=== PATIENT | male | born 1985 ===

== ENCOUNTER 2019-11-26 11:09 | Day surgery (SDC) | payer OTHER ==
[~2019-11-26 11:09] MED LIST: Buffered Lidocaine 1% SYRIN* 1 ML/SYRINGE INTRADERM ONE; Famotidine IV* 10 MG/ML 2 ML (20 mg) IV ONE; Lactated Ringers 1000 ML Bag* 1,000 ML IV SCH
[2019-11-26] MEDS ORDERED: Midazolam* 1 MG/ML 5 ML VIAL (5 MG) ONE ×2 (11:20→16:29)
[2019-11-26] MEDS ORDERED: Clindamycin 900 MG/D5W BAG(*) 900 MG/50 ML BAG IVPB ONE (11:28)
[2019-11-26] MEDS ORDERED: Buffered Lidocaine 1% SYRIN* 1 ML/SYRINGE INTRADERM ONE (11:28)
[2019-11-26] MEDS ORDERED: Famotidine IV* 10 MG/ML 2 ML (20 mg) ONE (11:29)
[2019-11-26] MEDS ORDERED: Bupivacaine 0.25% SDV* 30 ML ONE (12:40)
[2019-11-26] MEDS ORDERED: fentaNYL* 50 MCG/ML 2 ML VIAL (100 MCG VIAL) ONE (13:49)
[2019-11-26] MEDS ORDERED: Ketorolac INJ* 30 MG/ML 1 ML VIAL ONE (13:55)
[2019-11-26] MEDS ORDERED: Dexamethasone IV* 4 MG/ML 1 ML (4 MG) ONE (13:55)
[2019-11-26] MEDS ORDERED: Lidocaine 2% PF * 5 ML VIAL ONE (13:55)
[2019-11-26] MEDS ORDERED: HYDROmorphone INJ1* 1 MG/ML SYRINGE ONE ×2 (13:55→16:58)
[2019-11-26] MEDS ORDERED: Ondansetron INJ* 2 MG/ML VIAL ONE (13:55)
[2019-11-26] MEDS ORDERED: Propofol* 10 MG/ML 20 ML BTL ONE ×2 (13:55→14:46)
[2019-11-26] MEDS ORDERED: DiMENhydriNATE IV* 50 MG/ML VIAL IV PUSH PRN (15:45)
[2019-11-26] MEDS ORDERED: HYDROcodone/ACETAMIN 5-325 MG* 1 TAB PO PRN (15:45)
[2019-11-26] MEDS ORDERED: Naloxone* 0.4 MG/ML 1 ML VIAL IV PRN (15:45)
[2019-11-26] MEDS ORDERED: HYDROcodone/ACETAMIN 5-325 MG* 1 TAB ONE (16:58)
[2019-11-26 18:03] VITALS: BP 142/84
--- NOTE | 2019-11-27 01:14 | OP ---
DATE OF OPERATION: 11/26/19 [facility] DATE OF : 81 SURGEON: Robbie Mota MD PUBLICATION DESIGNER: STELLA Payton. An shampoo assistant was needed for entirety of the procedure to aid in positioning of the arm and retraction. ANESTHESIOLOGIST: Dr. Cruz. ANESTHESIA: General. PRE-OP DIAGNOSIS: Right ring finger subacute proximal interphalangeal joint dorsal fracture-dislocation. POST-OP DIAGNOSIS: Right ring finger subacute proximal interphalangeal joint dorsal fracture-dislocation. OPERATIVE PROCEDURE: Repair of right ring finger proximal interphalangeal joint dorsal fracture-dislocation with lenny-hamate arthroplasty. INDICATIONS: Mr. Forman is an inmate. When he got to me, the fracture- dislocation was already over a month old. The finger is completely stiff. We got him in for surgery just as soon as we could working with the custodial system and scheduling. He now presents about a month and a half out from the fracture - dislocation. He understands there is a risk of persistent stiffness, neurovascular injury, as well as donor site problems. He wants to proceed. He understands he is likely to regain full motion and likely to have somewhat stiff finger. ESTIMATED BLOOD LOSS: 5 mL. COMPLICATIONS: None. FINDINGS: See above and below. DESCRIPTION OF PROCEDURE: Mr. Forman was seen in the preoperative holding area. The correct site, side, and procedure were identified. We came back to the operating room, where the arm was prepped and draped in the usual fashion and a time-out was performed. I first placed a digital block with 0.25% plain Marcaine. I then raised a trapezoidal radially based flap off the carcamo aspect of the right ring finger over the PIP joint. Flap was sown back. I released the A3 jenaro and then used a [place] blade to release the collateral ligaments and the volar plate distally. I then was able to retract the tendons ulnarly while I shucked and opened the joint. The healing bone was seen. I used a sagittal saw to make a nice squared off cut excising the fractured and malunited fragment preserving the insertion of the FDS tendon. Once I had prepared the middle phalanx base, I went ahead and turned my attention to harvesting the graft. I made a longitudinal incision over the 4th and 5th carpometacarpal joint. Dissection was carried down. I utilized the interval between the tendons. The sensory nerves were preserved. Subperiosteal dissection exposed the 4th and 5th CMC joints. I used a sagittal saw to make a transverse cut about 6 or 7 mm proximal to the articular surface. The narrow osteotome was used to make my cuts on either side. I then excised the dorsum of the 4th and 5th metacarpal bases and used the curved osteotome to complete my cut and harvest my graft which came out in 1 nice piece. The graft was then taken and placed into the shucked and open joint. Once I had it in place, I provisionally held it with 1.8 mm K-wire. I then drilled and placed two 10 mm 1.3 x 1.3 mm screws from the [employer] variable angle hand set. This provided excellent compression and good stability. The contour of the joint was nicely restored again. At this point, things were looking good. I went ahead and irrigated out the area. I then reduced the joint. The joint was stable. I brought a mini C-arm fluoroscopy. I confirmed good alignment of the joint and put the AP and lateral views. I did this on the lateral view and extension as well as mid and full flexion. There was a nicely gliding and congruent joint. Lastly, I irrigated out the finger wound. Skin was closed with 4-0 nylon suture. I then irrigated out the dorsal wound and closed the capsule with 4-0 PDS suture. The skin was then closed with 4-0 nylon suture. 0.25% Marcaine was infiltrated down on the areas. He was placed in a well padded ulnar gutter sling grabbing the middle through small fingers in the intrinsic plus position. Tourniquet was deflated, the finger pinked up immediately. He was taken to the recovery room in stable condition. [id number] #: [id number] [facility]ENTERWali
== END 2019-11-26 18:09 ==
LOC: OR 11:09
PROVIDERS: ATTEND Orthopaedic Surgery Hand Surgery
DX: S62.614A Displaced fracture of proximal phalanx of right ring finger, initial encounter for closed fracture (principal); F17.210 Nicotine dependence, cigarettes, uncomplicated; E78.00 Pure hypercholesterolemia, unspecified; F41.9 Anxiety disorder, unspecified; Z88.0 Allergy status to penicillin; F10.21 Alcohol dependence, in remission; F19.21 Other psychoactive substance dependence, in remission; Y04.0XXA Assault by unarmed brawl or fight, initial encounter; Y92.149 Unspecified place in prison as the place of occurrence of the external cause
CPT/HCPCS: 76000; C1713; C1776; J1100; J1170; J1885; J2250; J2405; J2704; J3010; J3490